=== PATIENT | female | born 1995 | race Caucasian/White ===

== ENCOUNTER 2023-01-23 15:11 | Emergency (ER) | payer OTHER ==
[~2023-01-23] VITALS: Ht 172.7 cm; Wt 81.6 kg
[2023-01-23 15:11] VITALS: BP 116/66
[2023-01-23] MEDS ORDERED: LORAZEPAM 1 MG TABLET PO ONE (15:30)
[2023-01-23] MEDS ORDERED: LORAZEPAM 1 MG TABLET ONE (15:33)
== END 2023-01-23 16:04 | disposition home or self-care (01) ==
LOC: ER 15:15
DX: F41.9 Anxiety disorder, unspecified (principal); F32.A Depression, unspecified